=== PATIENT | female | born 1950 | race Caucasian/White ===

== ENCOUNTER 2022-06-15 08:36 | Outpatient (CLI) | payer MEDICARE, BC, SELFPAY ==
--- NOTE | 2022-06-15 10:53 | W.ANESCHARGE ---
Anesthesia Charges Start Date/Time Anesthesia Start Date: 06/15/22 Anesthesia Start Time: 09:25 Stop Date/Time Anesthesia Stop Date: 06/15/22 Anesthesia Stop Time: 10:05 Summary Emergency: No Extremes of Age: Over 72-CPT [id number]
== END 2022-06-15 08:37 | disposition home or self-care (01) ==
LOC: OP CLINIC 08:37
PROVIDERS: PCP Physician Assistant; Visit Provider Internal Medicine Gastroenterology
DX: Z86.010 Personal history of colon polyps (principal); K62.89 Other specified diseases of anus and rectum; K62.1 Rectal polyp; K57.30 Diverticulosis of large intestine without perforation or abscess without bleeding; Z98.890 Other specified postprocedural states
CPT/HCPCS: 00811; 45380; 45385; 88305; 99100; J2704